=== PATIENT | female | born 1975 | race Caucasian/White ===

== ENCOUNTER 2017-04-24 19:41 | Emergency (ER) | payer SELFPAY ==
[~2017-04-24] VITALS: Ht 165.1 cm; Wt 63.6 kg
[~2017-04-24 19:41] MED LIST: DOXY100C2 PO; HYDR-971 PO; KETO10TA PO
[2017-04-24 20:47] LABS: BASO # 0.1 x10^3/uL (0.0-0.2); BASO % 1 % (0-3); EOS # 0.3 x10^3/uL (0.0-0.7); EOS % 3 % (0-3); HEMATOCRIT 38.2 % (36.0-47.0); HEMOGLOBIN 13.6 g/dL (12.0-15.5); LYMPH # 3.7 x10^3/uL (1.0-4.8); LYMPH % 37 % (24-48); MEAN CORPUSCULAR HEMOGLOBIN 32 pg (25-35); MEAN CORPUSCULAR HGB CONC 36 g/dL (31-37); MEAN CORPUSCULAR VOLUME 91 fL (79-100); MONO # 0.8 x10^3/uL (0.0-1.1); MONO % 8 % (0-9); NEUT # 5.1 x10^3uL (1.8-7.7); NEUT % 51 % (31-73); PLATELET COUNT 247 x10^3/uL (140-400); RED BLOOD COUNT 4.19 x10^6/uL (3.50-5.40); WHITE BLOOD COUNT 9.9 x10^3/uL (4.0-11.0)
[2017-04-24 20:56] LABS: ALBUMIN 3.5 g/dL (3.4-5.0); ALBUMIN/GLOBULIN RATIO 0.9 (1.0-1.7); CALCIUM 8.8 mg/dL (8.5-10.1); CREATININE 0.9 mg/dL (0.6-1.0); POTASSIUM 3.2 mmol/L (3.5-5.1); TOTAL BILIRUBIN 0.2 mg/dL (0.2-1.0); TOTAL PROTEIN 7.2 g/dL (6.4-8.2)
[2017-04-24 21:00] VITALS: BP 100/66
[2017-04-24] MEDS ORDERED: ASPIRIN ENTERIC COATED 325 MG TABLET.DR. PO ONE (21:00)
[2017-04-24] MEDS ORDERED: NITROGLYCERIN SUBLINGUAL 0.4 MG BOTTLE OF 25. SL ONE (21:00)
[2017-04-24] MEDS ORDERED: LIDO:MAALOX 1:1 20 ML SINGLE DOSE PO ONE (21:00)
[2017-04-24] MEDS ORDERED: KETOROLAC 30 MG/ML VIAL. IV ONE (22:30)
[2017-04-24] MEDS ORDERED: ALPRAZolam 0.25 MG TABLET PO ONE (22:30)
[2017-04-24] MEDS ORDERED: clonazePAM 1 MG TABLET PO ONE (22:30)
--- NOTE | 2017-04-24 22:32 | ED.ADGEN ---
Past History Past Medical History: Cancer, Endometriosis, Ovarian Cyst, Other Past Surgical History: Appendectomy, , Oophorectomy, Other Smoking: Less than 1pk/day Alcohol Use: None Drug Use: Marijuana Adult General Chief Complaint Chief Complaint chest pain and anxiety HPI HPI Patient is a [42 y/o female who has had chest pain off and on for 4 days. she has had constant pain sine 10:30am today. it is midsternal. it is worse with deep breaths and palpation of left chest. she states laying flat is worse and sitting forward is better. walking does NOT make pain worse. she has no heart hx. she does smoke. her family has CAD. she has not had htn or high chol. she is getting and her continually calls her and bothers her. she is under a great deal of stress and feels anxious all the time. she has been on xanax and klonopin in the past. klonopin helps most Review of Systems Review of Systems Constitutional: Denies fever or chills [] Eyes: Denies change in visual acuity, redness, or eye pain [] HENT: Denies nasal congestion or sore throat [] Respiratory: Denies cough or shortness of breath [] Cardiovascular: No additional information not addressed in HPI [] GI: Denies abdominal pain, nausea, vomiting, bloody stools or diarrhea [] : Denies dysuria or hematuria [] Musculoskeletal: Denies back pain or joint pain [] Integument: Denies rash or skin lesions [] Neurologic: Denies headache, focal weakness or sensory changes [] Endocrine: Denies polyuria or polydipsia [] Current Medications Current Medications Current Medications Medications (Trade) Dose Ordered Sig/Krzysztof Start Time Stop Time Status Last Admin Dose Admin Alprazolam (Xanax) 0.5 mg 1X ONCE 04/24/17 22:30 04/24/17 22:30 DC Aspirin (Aspirin Enteric Coated) 325 mg 1X ONCE 04/24/17 21:00 04/24/17 21:01 DC 04/24/17 21:00 325 MG Clonazepam (KlonoPIN) 0.5 mg 1X ONCE 04/24/17 22:30 04/24/17 22:31 DC 04/24/17 22:21 0.5 MG Ketorolac Tromethamine (Toradol) 30 mg 1X ONCE 04/24/17 22:30 04/24/17 22:31 DC 04/24/17 22:22 30 MG Multi-Ingredient Mouthwash/Gargle (Gi Cocktail) 20 ml 1X ONCE 04/24/17 21:00 04/24/17 21:01 DC 04/24/17 21:00 20 ML Nitroglycerin (Nitrostat) 0.4 mg 1X ONCE 04/24/17 21:00 04/24/17 21:01 DC Allergies Allergies Allergies Coded Allergies Type Severity Reaction Last Updated Verified morphine Allergy Severe HEART STOPS 08/30/14 Yes Iodinated Contrast Media - IV Dye Allergy Intermediate 08/30/14 Yes Physical Exam Physical Exam Constitutional: Well developed, well nourished, no acute distress, non-toxic appearance. [] HENT: Normocephalic, atraumatic, bilateral external ears normal, oropharynx moist, no oral exudates, nose normal. [] Eyes: PERRLA, EOMI, conjunctiva normal, no discharge. [] Neck: Normal range of motion, no tenderness, supple, no stridor. [] Cardiovascular:Heart rate regular rhythm, no murmur . tender to palpate left upper chest Lungs & Thorax: Bilateral breath sounds clear to auscultation [] Abdomen: Bowel sounds normal, soft, no tenderness, no masses, no pulsatile masses. no epigastric pain Skin: Warm, dry, no erythema, no rash. Back: No tenderness, no CVA tenderness. [] Extremities: No tenderness, no cyanosis, no clubbing, ROM intact, no edema. [] Neurologic: Alert and oriented X 3, normal motor function, normal sensory function, no focal deficits noted. [] Psychologic: Affect normal, judgement normal, mood normal. slightly anxious Current Patient Data Vital Signs Vital Signs Date Time Temp Pulse Resp B/P (MAP) Pulse Ox O2 Delivery O2 Flow Rate FiO2 04/24/17 21:00 68 100/66 04/24/17 20:16 98.1 20 98 Room Air Lab Results Laboratory Tests Test 04/24/17 20:04 White Blood Count 9.9 x10^3/uL (4.0-11.0) Red Blood Count 4.19 x10^6/uL (3.50-5.40) Hemoglobin 13.6 g/dL (12.0-15.5) Hematocrit 38.2 % (36.0-47.0) Mean Corpuscular Volume 91 fL (79-100) Mean Corpuscular Hemoglobin 32 pg (25-35) Mean Corpuscular Hemoglobin Concent 36 g/dL (31-37) Red Cell Distribution Width 12.0 % (11.5-14.5) Platelet Count 247 x10^3/uL (140-400) Neutrophils (%) (Auto) 51 % (31-73) Lymphocytes (%) (Auto) 37 % (24-48) Monocytes (%) (Auto) 8 % (0-9) Eosinophils (%) (Auto) 3 % (0-3) Basophils (%) (Auto) 1 % (0-3) Neutrophils # (Auto) 5.1 x10^3uL (1.8-7.7) Lymphocytes # (Auto) 3.7 x10^3/uL (1.0-4.8) Monocytes # (Auto) 0.8 x10^3/uL (0.0-1.1) Eosinophils # (Auto) 0.3 x10^3/uL (0.0-0.7) Basophils # (Auto) 0.1 x10^3/uL (0.0-0.2) D-Dimer (Jazzmine) 0.35 mg/L (0.00-0.50) Sodium Level 142 mmol/L (136-145) Potassium Level 3.2 mmol/L (3.5-5.1) L Chloride Level 104 mmol/L (98-107) Carbon Dioxide Level 30 mmol/L (21-32) Anion Gap 8 (6-14) Blood Urea Nitrogen 10 mg/dL (7-20) Creatinine 0.9 mg/dL (0.6-1.0) Estimated GFR (Cockcroft-Gault) 69.0 BUN/Creatinine Ratio 11 (6-20) Glucose Level 108 mg/dL (70-99) H Calcium Level 8.8 mg/dL (8.5-10.1) Total Bilirubin 0.2 mg/dL (0.2-1.0) Aspartate Amino Transferase (AST) 18 U/L (15-37) Alanine Aminotransferase (ALT) 28 U/L (14-59) Alkaline Phosphatase 77 U/L (46-116) Troponin I Quantitative < 0.017 ng/mL (0-0.055) Total Protein 7.2 g/dL (6.4-8.2) Albumin 3.5 g/dL (3.4-5.0) Albumin/Globulin Ratio 0.9 (1.0-1.7) L Lipase 491 U/L (73-393) H EKG EKG HR [address]-t nml axis no elev or dep [] Radiology/Procedures Radiology/Procedures [] Course & Med Decision Making Course & Med Decision Making Pertinent Labs and Imaging studies reviewed. (See chart for details) meds helped. she wants something for home. she does not want to stay. she says xanax makes her angry. she doesn't want klonopin because she doesn't want an addiction. we discussed hydroxyzine for now. []pt has heart score of 2 for smoking and family hx. no murmur or rub on exam. no diffuse st elevation to suggest pericarditis and trop is neg after 12 hours of constant pain Final Impression Final Impression chest pain suspect noncardiac. anxiety[] Problems: Dragon Disclaimer Dragon Disclaimer This electronic medical record was generated, in whole or in part, using a voice recognition dictation system. Departure Disposition: HOME, SELF-CARE Condition: STABLE Patient Instructions: Chest Pain (Nonspecific), [id number] Additional Instructions: start hydroxyzine as needed for anxiety. return immediately if any symptoms worsen. try to find a family doctor to continue medical care Prescriptions hydroxyzine MARIANA LEON MD Apr 24, 2017 22:32
[2017-04-24] MEDS ORDERED: HYDR25TA PO (22:34)
--- NOTE | 2017-04-25 09:19 | RAD ---
AP portable chest radiograph 04/24/2017 Clinical History: Chest pain. An AP portable erect digital radiograph of the chest was obtained. Comparison study is dated 09/06/2015. The cardiac and mediastinal silhouettes are within normal limits in size and configuration. No acute pulmonary infiltrate is seen. No pleural effusion or pneumothorax is noted. The osseous structures are grossly intact. Impression: No acute abnormality is seen.
--- NOTE | 2017-04-25 11:18 | EKG ---
[address] [address] Test Date: 2017-04-24 Test Time: 19:51:14 Pat Name: EJROMY KITCHEN Department: Room: Gender: F Change Management: [id number] : 1975 Requested By: MARIANA LEON Order Number: [id number] Reading MD: Measurements Intervals [place] Rate: 75 P: 35 [place]: 146 QRS: 17 QRSD: 90 T: 38 QT: 400 QTc: 449 Interpretive Statements SINUS RHYTHM QRS(T) CONTOUR ABNORMALITY CONSIDER ANTEROSEPTAL MYOCARDIAL DAMAGE RI6.01 Unconfirmed report No previous ECG available for comparison
== END 2017-04-24 22:48 | disposition home or self-care (01) ==
LOC: ER 19:41
DX: F41.9 Anxiety disorder, unspecified (principal); F17.200 Nicotine dependence, unspecified, uncomplicated; F12.10 Cannabis abuse, uncomplicated; Z88.5 Allergy status to narcotic agent; Z91.041 Radiographic dye allergy status
CPT/HCPCS: 36415; 71010; 80053; 83690; 84484; 85027; 85379; 96374; 99285; J1885

== ENCOUNTER 2020-07-13 12:16 | Emergency (ER) | payer SELFPAY ==
[~2020-07-13] VITALS: Ht 152.4 cm; Wt 60.0 kg
[~2020-07-13 12:16] MED LIST changes: +HYDR-3165 PO; -HYDR-971 PO; +HYDR25TA PO
[2020-07-13] MEDS ORDERED: ASPIRIN CHEWABLE 81 MG TABLET. PO ONE (12:30)
--- NOTE | 2020-07-13 12:31 | PHYS DOC ---
Past History Past Medical History: Cancer, Endometriosis, Ovarian Cyst, Other Past Surgical History: Appendectomy, , Oophorectomy, Other Smoking: Less than 1pk/day, Quit Less Than 1 Year Alcohol Use: None Drug Use: Marijuana General Adult EDM: Chief Complaint: CHEST PAIN HPI: HPI: Patient is a 45-year-old female presents with a chief complaint of chest pain. Patient states she has had chest pain for last hour and a half described as a pressure in the middle of her chest that radiates to her back into her jaw. Patient has some shortness of breath and had some mild nausea associated with it. Patient states symptoms worse with deep breath. Patient has had intermittent symptoms like this for the last month and a half. Pain today is waxing and waning. Pain is currently 6 out of 10. Review of Systems: Review of Systems: Constitutional: Denies fever or chills Eyes: Denies change in visual acuity HENT: Denies nasal congestion or sore throat Respiratory: Denies cough but has had shortness of breath Cardiovascular: Complains of chest pain but no edema GI: Denies abdominal pain, , vomiting, bloody stools or diarrhea patient had some mild nausea earlier which has since improved : Denies dysuria Musculoskeletal: Complains of back pain but no joint pain Integument: Denies rash Neurologic: Denies headache, focal weakness or sensory changes Endocrine: Denies polyuria or polydipsia Lymphatic: Denies swollen glands Psychiatric: Denies depression or anxiety Current Medications: Current Meds: Current Medications Aspirin (Aspirin Chewable) 324 mg 1X ONCE PO Last administered on 07/13/20at 12:36; Start 07/13/20 at 12:30; Stop 07/13/20 at 12:31; Status DC Potassium Chloride (Klor-Con) 40 meq 1X ONCE PO Last administered on 07/13/20at 13:16; Start 07/13/20 at 13:15; Stop 07/13/20 at 13:16; Status DC Active Scripts Active Children's Aspirin (Aspirin) 81 Mg Tab.chew 1 Tab PO DAILY 30 Days Hydroxyzine Hcl 25 Mg Tablet 0.5-1 Tab PO TID Bruce 5-325 Tablet (Hydrocodone Bit/Acetaminophen) 1 Each Tablet 1 Tab PO PRN Q6HRS PRN Doxycycline Hyclate 100 Mg Capsule 1 Cap PO BID Ketorolac Tromethamine 10 Mg Tablet 1 Tab PO TID Reported No Known Medications Prior To Admisstion (Info) Each 1 Each Allergies: Allergies: Allergies Coded Allergies Type Severity Reaction Last Updated Verified morphine Allergy Severe HEART STOPS 07/13/20 Yes Iodinated Contrast Media Allergy Intermediate 07/13/20 Yes Physical Exam: PE: Constitutional: Well developed, well nourished, no acute distress, non-toxic appearance. [] HENT: Normocephalic, atraumatic, bilateral external ears normal, no trismus, nose normal. [] Eyes: PERRLA, EOMI, conjunctiva normal, no discharge. [] Neck: Normal range of motion, no tenderness, supple, no stridor. [] Cardiovascular:Heart rate regular rhythm, peripheral pulse intact cap refill is brisk Lungs & Thorax: Bilateral breath sounds clear, no respiratory distress, tender to palpate on the sternum Abdomen: soft, no tenderness, no masses, no pulsatile masses. [] Skin: Warm, dry, no erythema, no rash. [] Back: No tenderness, no CVA tenderness. [] Extremities: No tenderness, no cyanosis, no clubbing, ROM intact, no edema. [] Neurologic: Alert and oriented X 3, normal motor function, normal sensory function, no focal deficits noted. [] Psychologic: Affect normal, judgement normal, mood normal. [] Current Patient Data: Labs: Laboratory Tests Test 07/13/20 12:25 07/13/20 15:00 White Blood Count 13.3 x10^3/uL Red Blood Count 4.30 x10^6/uL Hemoglobin 13.7 g/dL Hematocrit 40.4 % Mean Corpuscular Volume 94 fL Mean Corpuscular Hemoglobin 32 pg Mean Corpuscular Hemoglobin Concent 34 g/dL Red Cell Distribution Width 12.0 % Platelet Count 276 x10^3/uL Neutrophils (%) (Auto) 74 % Lymphocytes (%) (Auto) 21 % Monocytes (%) (Auto) 4 % Eosinophils (%) (Auto) 1 % Basophils (%) (Auto) 0 % Neutrophils # (Auto) 9.8 x10^3uL Lymphocytes # (Auto) 2.7 x10^3/uL Monocytes # (Auto) 0.5 x10^3/uL Eosinophils # (Auto) 0.2 x10^3/uL Basophils # (Auto) 0.0 x10^3/uL D-Dimer (Jazzmine) 0.23 mg/L Sodium Level 143 mmol/L Potassium Level 3.1 mmol/L Chloride Level 104 mmol/L Carbon Dioxide Level 28 mmol/L Anion Gap 11 Blood Urea Nitrogen 7 mg/dL Creatinine 0.8 mg/dL Estimated GFR (Cockcroft-Gault) 77.9 BUN/Creatinine Ratio 9 Glucose Level 87 mg/dL Calcium Level 9.1 mg/dL Total Bilirubin 0.1 mg/dL Aspartate Amino Transf (AST/SGOT) 18 U/L Alanine Aminotransferase (ALT/SGPT) 25 U/L Alkaline Phosphatase 87 U/L Troponin I Quantitative < 0.017 ng/mL < 0.017 ng/mL Total Protein 7.7 g/dL Albumin 4.0 g/dL Albumin/Globulin Ratio 1.1 Lipase 120 U/L Serum Test, Qualitative Negative Current Medications Medications (Trade) Dose Ordered Sig/Krzysztof Route PRN Reason Start Time Stop Time Status Last Admin Dose Admin Aspirin (Aspirin Chewable) 324 mg 1X ONCE PO 07/13/20 12:30 07/13/20 12:31 DC 07/13/20 12:36 Potassium Chloride (Klor-Con) 40 meq 1X ONCE PO 07/13/20 13:15 07/13/20 13:16 DC 07/13/20 13:16 Laboratory Tests Test 07/13/20 12:25 White Blood Count 13.3 x10^3/uL Red Blood Count 4.30 x10^6/uL Hemoglobin 13.7 g/dL Hematocrit 40.4 % Mean Corpuscular Volume 94 fL Mean Corpuscular Hemoglobin 32 pg Mean Corpuscular Hemoglobin Concent 34 g/dL Red Cell Distribution Width 12.0 % Platelet Count 276 x10^3/uL Neutrophils (%) (Auto) 74 % Lymphocytes (%) (Auto) 21 % Monocytes (%) (Auto) 4 % Eosinophils (%) (Auto) 1 % Basophils (%) (Auto) 0 % Neutrophils # (Auto) 9.8 x10^3uL Lymphocytes # (Auto) 2.7 x10^3/uL Monocytes # (Auto) 0.5 x10^3/uL Eosinophils # (Auto) 0.2 x10^3/uL Basophils # (Auto) 0.0 x10^3/uL D-Dimer (Jazzmine) 0.23 mg/L Sodium Level 143 mmol/L Potassium Level 3.1 mmol/L Chloride Level 104 mmol/L Carbon Dioxide Level 28 mmol/L Anion Gap 11 Blood Urea Nitrogen 7 mg/dL Creatinine 0.8 mg/dL Estimated GFR (Cockcroft-Gault) 77.9 BUN/Creatinine Ratio 9 Glucose Level 87 mg/dL Calcium Level 9.1 mg/dL Total Bilirubin 0.1 mg/dL Aspartate Amino Transf (AST/SGOT) 18 U/L Alanine Aminotransferase (ALT/SGPT) 25 U/L Alkaline Phosphatase 87 U/L Troponin I Quantitative < 0.017 ng/mL Total Protein 7.7 g/dL Albumin 4.0 g/dL Albumin/Globulin Ratio 1.1 Lipase 120 U/L Serum Test, Qualitative Negative Current Medications Medications (Trade) Dose Ordered Sig/Krzysztof Route PRN Reason Start Time Stop Time Status Last Admin Dose Admin Aspirin (Aspirin Chewable) 324 mg 1X ONCE PO 07/13/20 12:30 07/13/20 12:31 DC 07/13/20 12:36 Potassium Chloride (Klor-Con) 40 meq 1X ONCE PO 07/13/20 13:15 07/13/20 13:16 DC 07/13/20 13:16 Vital Signs: Vital Signs Date Time Temp Pulse Resp B/P (MAP) Pulse Ox O2 Delivery O2 Flow Rate FiO2 07/13/20 13:34 59 20 105/71 (82) 98 Room Air 07/13/20 12:16 98.4 EKG: EKG: [] EKG interpreted by me normal sinus rhythm with a rate of 67 normal axis normal intervals normal ST segments Radiology/Procedures: Radiology/Procedures: [][address] [address] IMAGING REPORT Signed PATIENT: JEROMY KITCHEN ACCOUNT: [id number] : 1975 LOCATION: ER AGE: 45 SEX: F EXAM STATUS: REG ER ORD. PHYSICIAN: AL DYKES MD REASON: chest pain PROCEDURE: PORTABLE CHEST 1V AP chest. HISTORY: Chest pain AP view was taken of the chest. Lungs are clear. Heart is normal in size. There is no pleural effusion. IMPRESSION: 1. No acute chest disease. Electronically signed by: Tay Starr MD (07/13/2020 1:02 PM) [id number] DICTATED AND SIGNED BY: TAY STARR MD DATE: 07/13/20 1305 CC: AL DYKES MD; PCP,MORALES ~ Heart Score: HEART Score for Chest Pain: HEART Score for Chest Pain Response (Comments) Value History Highly Suspicious 2 ECG Normal 0 Age < 45 0 Risk Factors 1 or 2 Risk Factors 1 Troponin < Normal Limit 0 Total 3 Risk Factors: Risk Factors: DM, Current or recent (<one month) smoker, HTN, HLP, family history of CAD, obesity. Risk Scores: Score 0 - 3: 2.5% MACE over next 6 weeks - Discharge Home Score 4 - 6: 20.3% MACE over next 6 weeks - Admit for Clinical Observation Score 7 - 10: 72.7% MACE over next 6 weeks - Early Invasive Strategies Course & Med Decision Making: Course & Med Decision Making Pertinent Labs and Imaging studies reviewed. (See chart for details) [] Patient reassessed at 2:38 PM and feels significantly better. 45-year-old female presents with chest pain. Patient has a heart score of 3, doubt acute coronary syndrome. EKG is unremarkable. Troponin is negative x2. D-dimer is negative for pulmonary [place]. On reassessment patient feels much better. Discussed with patient return precautions. Patient referral to cardiology for outpatient follow-up and stress test. Dragon Disclaimer: Dragon Disclaimer: This electronic medical record was generated, in whole or in part, using a voice recognition dictation system. Departure Departure: Impression: Primary Impression: Chest pain Disposition: 01 DC HOME SELF CARE/HOMELESS Condition: STABLE Referrals: PCP,NO (PCP) JOHN FREIRE MD 2-3 days Patient Instructions: Chest Pain (Nonspecific) Additional Instructions: EMERGENCY DEPARTMENT GENERAL DISCHARGE INSTRUCTIONS THANK YOU for coming to [facility] Emergency Department (ED) today and trusting us with your care. We trust that you had a positive experience in our Emergency Department. If you wish to speak to the department Management you can contact the emergency department at YOUR FOLLOW UP INSTRUCTIONS ARE FOLLOWS: Do you have a private doctor? If you do not have a private doctor, please ask for a resource list of physicians or clinics that may be able to assist you with follow up care. The Emergency Physician has interpreted your x-rays. The X-ray specialist will also review them. If there is a change in the findings you will be notified in 48 hours when at all possible. A lab test or lab culture may have been done, your results will be reviewed and you will be notified if you need a change in treatment. ADDITIONAL INSTRUCTIONS AND INFORMATION Your care today has been supervised by a physician who is specially trained in emergency care. Many problems require more than one evaluation for a complete diagnosis and treatment. We recommend that you schedule your follow up appointment as recommended to ensure complete treatment of your illness or injury. If you are unable to obtain follow up care and continue to have a problem, or if your condition worsens we recommend that you return to the ED. We are not able to safely determine your condition over the phone nor are we able to give sound medical advice over the phone. For these safety reasons, if you call for medical advice we will ask you to come to the ED for further evaluation If you have any questions regarding these discharge instructions please call the ED at . SAFETY INFORMATION In the interest of safety, wellness, and injury prevention; we encourage you to wear your seatbelt, if you smoke; quit smoking, and we encourage your family to use protective helmet for bicycling and other sporting events that present an increased risk for head injury. IF YOUR SYMPTOMS WORSEN OR NEW SYMPTOMS DEVELOP, OR YOU HAVE CONCERNS ABOUT YOUR CONDITION; OR IF YOUR CONDITION WORSENS WHILE YOU ARE WAITING FOR YOUR FOLLOW UP APPOINTMENT; EITHER CONTACT YOUR PRIMARY CARE DOCTOR, THE PHYSICIAN WHOSE NAME AND NUMBER YOU WERE GIVEN, OR RETURN TO THE ED IMMEDIATELY. Scripts Aspirin (Children's Aspirin) 81 Mg Tab.chew 1 TAB PO DAILY for chest pain for 30 Days, #30 TAB 0 Refills Prov: AL DYKES MD 07/13/20 AL DYKES MD Jul 13, 2020 12:30
[2020-07-13 12:45] LABS: BASO % 0 % (0-3); EOS # 0.2 x10^3/uL (0.0-0.7); EOS % 1 % (0-3); HEMATOCRIT 40.4 % (36.0-47.0); HEMOGLOBIN 13.7 g/dL (12.0-15.5); LYMPH # 2.7 x10^3/uL (1.0-4.8); LYMPH % 21 % (24-48); MEAN CORPUSCULAR HEMOGLOBIN 32 pg (25-35); MEAN CORPUSCULAR HGB CONC 34 g/dL (31-37); MEAN CORPUSCULAR VOLUME 94 fL (79-100); MONO # 0.5 x10^3/uL (0.0-1.1); MONO % 4 % (0-9); NEUT # 9.8 x10^3uL (1.8-7.7); NEUT % 74 % (31-73); PLATELET COUNT 276 x10^3/uL (140-400); WHITE BLOOD COUNT 13.3 x10^3/uL (4.0-11.0)
[2020-07-13 12:56] LABS: CALCIUM 9.1 mg/dL (8.5-10.1); CREATININE 0.8 mg/dL (0.6-1.0); GFR 77.9; POTASSIUM 3.1 mmol/L (3.5-5.1); PREG TEST PT QUAL NEGATIVE (NEG)
[2020-07-13 13:02] LABS: ALBUMIN/GLOBULIN RATIO 1.1 (1.0-1.7); TOTAL BILIRUBIN 0.1 mg/dL (0.2-1.0); TOTAL PROTEIN 7.7 g/dL (6.4-8.2)
--- NOTE | 2020-07-13 13:05 | RAD ---
AP chest. HISTORY: Chest pain AP view was taken of the chest. Lungs are clear. Heart is normal in size. There is no pleural effusion. IMPRESSION: 1. No acute chest disease. Electronically signed by: Tay Starr MD (07/13/2020 1:02 PM) [id number]
[2020-07-13] MEDS ORDERED: POTASSIUM CHLORIDE 20 MEQ TABLET.ER. PO ONE (13:15)
--- NOTE | 2020-07-13 13:53 | EKG ---
[address] [address] Test Date: 2020-07-13 Test Time: 12:22:08 Pat Name: JEROMY KITCHEN Department: Room: Gender: F [employer]: : 1975 Requested By: AL DYKES Order Number: [id number] Reading MD: Measurements Intervals [place] Rate: 67 P: 49 [place]: 150 QRS: 28 QRSD: 82 T: 36 QT: 400 QTc: 426 Interpretive Statements SINUS RHYTHM NORMAL ECG RI6.02 No previous ECG available for comparison
[2020-07-13] MEDS ORDERED: ASPI81TA59 PO (14:58)
[2020-07-13 15:10] VITALS: BP 103/63
== END 2020-07-13 15:10 | disposition home or self-care (01) ==
LOC: ER 12:16
DX: R07.89 Other chest pain (principal); R06.02 Shortness of breath; Z87.891 Personal history of nicotine dependence; Z88.5 Allergy status to narcotic agent; Z91.041 Radiographic dye allergy status
CPT/HCPCS: 36415; 71045; 80053; 83690; 84484; 84703; 85025; 85379; 93005; 99285-25